=== PATIENT | female | born 1995 | race Caucasian/White ===

== ENCOUNTER 2018-03-17 21:16 | Emergency (ER) | payer OTHER ==
--- NOTE | 2018-03-17 23:12 | EDM.PDOC ---
ED HPI GENERAL MEDICAL PROBLEM - General Chief Complaint: Lower Extremity Injury/Pain Stated Complaint: LEFT FOOT HURTS FROM HEEL TO PINKY TOE Time Seen by Provider: 03/17/18 22:22 Source of Information: Reports: Patient, RN Notes Reviewed History Limitations: Reports: No Limitations - History of Present Illness INITIAL COMMENTS - FREE TEXT/NARRATIVE: The patient reports that she has had an achy sensation to the plantar aspect of her left foot at the MTP joints since 03/15/2017. She denies pain elsewhere on the foot, including the heel. No reported injury, however, the patient states that she works at [employer], and is on her feet all day. No prior similar pain. The patient states that she has not taken any ryoh-xqv-waufoez or other home remedies to treat her symptoms. The patient does not have a PCP. Left Feet Pain Score (Numeric/FACES): 6 - Related Data Allergies Allergy/AdvReac Type Severity Reaction Status Date / Time shellfish derived Allergy Chest Pain Verified 03/17/18 21:35 Home Meds: Home Meds . [No Known Home Meds] 03/17/18 [History] Past Medical History - Past Health History Medical/Surgical History: Denies Medical/Surgical History Social & Family History - Tobacco Use Smoking Status *Q: Never Smoker - Caffeine Use Caffeine Use: Reports: Coffee - Alcohol Use Alcohol Use History: Yes Alcohol Use Frequency: Socially - Recreational Drug Use Recreational Drug Use: No - Living Situation & Occupation Living situation: Reports: Single, with Significant Other (Boyfriend) Occupation: Employed ([employer]) Review of Systems - Review of Systems Review Of Systems: ROS reveals no pertinent complaints other than HPI. ED EXAM, GENERAL - Physical Exam Exam: See Below Exam Limited By: No Limitations General Appearance: Alert, WD/WN, No Apparent Distress Extremities: Other (No visible abnormality to the left foot, when compared to the right, such as swelling, erythema, ecchymosis, abrasion, however, the patient reports tenderness to palpation over the plantar aspect of the MTP joints. No tenderness elsewhere to the foot, including the heel. Neurovascular status of the left lower extremity is intact.) Course - Vital Signs Last Recorded V/S: Last Vital Signs Temp 37.3 C 03/17/18 21:38 Pulse 71 03/17/18 21:38 Resp 20 03/17/18 21:38 BP 115/69 01/04/19 21:38 Pulse Ox 100 03/17/18 21:38 - Orders/Labs/Meds Orders: Active Orders 24 hr Category Date Time Status Foot 2V Lt [CR] Stat Exams 03/17/18 22:24 Taken - Re-Assessments/Exams Free Text/Narrative Re-Assessment/Exam: 03/17/18 23:05 2-view radiographs of the left foot appear to be normal. No fractures or dislocations identified. Formal read per the Radiologist pending. 03/17/18 23:08 X-ray results discussed with the patient. The patient appears to have some musculoskeletal strain of her left foot connective tissue. I'm recommending ice , elevation, rest, and ibuprofen. I will refer her to Dr. Patterson, if her foot is still sore by 03/20/2018. I will write her a note for work for the weekend. Departure - Departure Time of Disposition: 23:09 Disposition: Home, Self-Care 01 Condition: Good Clinical Impression: Left foot pain - Discharge Information *PRESCRIPTION DRUG MONITORING PROGRAM REVIEWED*: Not Applicable *COPY OF PRESCRIPTION DRUG MONITORING REPORT IN PATIENT GIDEON: Not Applicable Instructions: Foot Pain Referrals: PCP,Not In Area [Primary Care Provider] - Vishnu Patterson MD [Physician] - Forms: ED Department Discharge, ED Return to Work/School Form Additional Instructions: You were seen in the emergency room for left foot pain. Workup in the ER included x-rays of your left foot, which were normal. No broken bones or dislocations were seen. Based on your history, physical examination, and x-rays, you have most likely strained the connective tissue in your left foot, likely because of prolonged standing and/or ill-fitting shoes. We recommend that you elevate, ice, and rest your left foot as much as possible over the weekend. Take rfqv-qog-ilpolqi ibuprofen, 2-3 tablets (400-600 mg) every 8 hours, with food, as needed for discomfort. A note for work has been provided for you, to return to work on Tuesday, 2017. If you do not feel that you can return to work by that date, please follow -up with the Orthopedic Surgeon Dr. Vishnu Patterson, for further evaluation. If any other problems, please do not hesitate to return to the ER. - My Orders Last 24 Hours: My Active Orders 03/17/18 22:24 Foot 2V Lt [CR] Stat - Assessment/Plan Last 24 Hours: My Active Orders 03/17/18 22:24 Foot 2V Lt [CR] Stat
--- NOTE | 2018-03-18 14:32 | CR ---
Left foot: Two views of the left foot were obtained. Comparison: No prior foot exam. No fracture or other abnormality is identified. Impression: 1. No abnormality is appreciated on the two-view left foot study. Note: If patient continues to be symptomatic, follow-up study could be considered in 10-14 days. Diagnostic code #1
== END 2018-03-17 23:17 | disposition home or self-care (01) ==
LOC: JD.ED 21:16
DX: M79.672 Pain in left foot (principal); Z91.013 Allergy to seafood
CPT/HCPCS: 73620-26-LT; 73620-LT; 99282; 99283

== ENCOUNTER 2018-04-25 19:44 | Emergency (ER) | payer OTHER ==
[2018-04-25] MEDS ORDERED: Metoclopramide 10 MG/2 ML SDV IVPUSH ONE (20:04)
--- NOTE | 2018-04-25 20:05 | EDM.PDOC ---
ED HPI GENERAL MEDICAL PROBLEM - General Chief Complaint: Gastrointestinal Problem Stated Complaint: VOMITING/FEELS WEAK & LIGHTHEADED Time Seen by Provider: 04/25/18 19:59 Source of Information: Reports: Patient History Limitations: Reports: No Limitations - History of Present Illness INITIAL COMMENTS - FREE TEXT/NARRATIVE: 22-year-old female presents to the ED with recurrent intractable nausea and vomiting of primary bilious material since 11:00 this morning. He states she woke up feeling quite normal. Started to feel nauseated while she was in class at [id number] today about 0900 hrs. Started vomiting about 11:00 and then vomited 3 times in a row. She tried to go to class but vomited once again and then decided to go home. She did have a protein shake for breakfast this morning. Try to nap most of the afternoon but vomited intermittently about every 2-3 hours. Emesis is primarily bilious without blood. Mild upper abdominal pain not radiating anywhere. She does not drink alcohol. Last menstrual period was 10 days ago. Ended last Tuesday. On time and is expected. No previous abdominal surgery. No diarrhea. Feels very weak and lightheaded dizzy. Throat is moderately sore. Onset: Today Onset Date: 04/25/18 Onset Time: 11:00 Duration: Hour(s): Location: Reports: Abdomen (Intractable nausea and vomiting) Quality: Reports: Other (Upper abdominal pressure discomfort in the epigastrium) Severity: Moderate Improves with: Reports: None Worsens with: Reports: Eating (Or taking fluids.) Context: Reports: Other (Spontaneous occurrence of nausea and vomiting this morning). Denies: Activity, Exercise, Lifting, Sick Contact, Trauma Associated Symptoms: Reports: Loss of Appetite, Nausea/Vomiting, Weakness, Other (See history present illness lightheaded dizzy when standing). Denies: Confusion, Chest Pain, Cough, cough w sputum, Diaphoresis, Fever/Chills, Headaches, Malaise, Rash, Seizure, Shortness of Breath Treatments [employer] PH[employer]PERATOR: Reports: Other (see below) (Nothing will stay down) - Related Data Allergies Allergy/AdvReac Type Severity Reaction Status Date / Time shellfish derived Allergy Chest Pain Verified 03/17/18 21:35 Home Meds: Home Meds Ondansetron [Zofran] 4 mg BUCCAL Q6H PRN #6 tab 04/25/18 [Rx] Past Medical History - Past Health History Medical/Surgical History: Denies Medical/Surgical History Social & Family History - Tobacco Use Smoking Status *Q: Never Smoker - Caffeine Use Caffeine Use: Reports: None - Recreational Drug Use Recreational Drug Use: No - Living Situation & Occupation Living situation: Reports: Single, with Significant Other (Boyfriend) Occupation: Employed ([employer]) ED ROS GENERAL - Review of Systems Review Of Systems: See Below Constitutional: Reports: Chills, Malaise, Weakness, Fatigue, Decreased Appetite , Weight Loss HEENT: Reports: Other Respiratory: Reports: No Symptoms (Mildly sore throat) Cardiovascular: Reports: No Symptoms Endocrine: Reports: No Symptoms GI/Abdominal: Reports: Abdominal Pain, Decreased Appetite, Nausea, Vomiting. Denies: Diarrhea (Intractable nausea and vomiting since about 1:00 this morning) : Reports: Other (Urine is dark jeanmarie in color). Denies: Dysuria Musculoskeletal: Reports: Muscle Pain Skin: Reports: No Symptoms (Mild generalized myalgia) Neurological: Reports: Dizziness (When standing) Psychiatric: Reports: No Symptoms Hematologic/Lymphatic: Reports: No Symptoms Immunologic: Reports: No Symptoms ED EXAM, GI/ABD - Physical Exam Exam: See Below Exam Limited By: No Limitations General Appearance: Alert, WD/WN, Mild Distress, Other (Appears mildly pallid.) Eyes: Bilateral: Normal Appearance (No scleral icterus.) Throat/Mouth: Other Head: Atraumatic (Oral pharynx is diffusely erythematous without any exudate.), Normocephalic Neck: Normal Inspection, Supple, Non-Tender, Full Range of Motion. No: Lymphadenopathy (L), Lymphadenopathy (R) Respiratory/Chest: No Respiratory Distress, Lungs Clear, Normal Breath Sounds, No Accessory Muscle Use, Chest Non-Tender Cardiovascular: Normal Peripheral Pulses, No Edema, No Gallop, No JVD, No Murmur (Resting tachycardia at 1 15/m), Tachycardia GI/Abdominal Exam: Normal Bowel Sounds, Soft (Sounds are mildly hyperactive in all 4 quadrants), Non-Tender, No Organomegaly, No Abnormal Bruit, No Mass, Pelvis Stable Back Exam: Normal Inspection, Full Range of Motion. No: CVA Tenderness (L), CVA Tenderness (R) Extremities: Normal Inspection, Normal Range of Motion, Non-Tender, No Pedal Edema Neurological: Alert, Oriented, CN II-XII Intact, Normal Cognition, Normal Gait Psychiatric: Normal Affect, Normal Mood Skin Exam: Warm, Dry, Intact, Normal Color, No Rash Course - Vital Signs Last Recorded V/S: Last Vital Signs Temp 36.6 C 04/25/18 19:51 Pulse 113 H 04/25/18 19:51 Resp 18 04/25/18 19:51 BP 115/77 04/25/18 19:51 Pulse Ox 97 04/25/18 19:51 Orthostatic Blood Pressure [ 101/66 Standing] Orthostatic Blood Pressure [ 112/78 Sitting] Orthostatic Blood Pressure [ 115/72 Supine] - Orders/Labs/Meds Orders: Active Orders 24 hr Category Date Time Status Orthostatic Vital Signs [RC] ASDIRECTED Care 04/25/18 19:59 Active Dextrose 5%-Lactated Ringers 1,000 ml Med 04/25/18 20:15 Active IV ASDIRECTED Ketorolac [Toradol] Med 04/25/18 20:15 Active 30 mg IVPUSH ONETIME Medication Orders Dextrose/Lactated Ringer's (Dextrose 5%-Lactated Ringers) 1,000 mls @ 999 mls/ hr IV ASDIRECTED YAW Last Admin: 04/25/18 20:13 Dose: 999 mls/hr Ketorolac Tromethamine (Toradol) 30 mg IVPUSH ONETIME YAW Last Admin: 04/25/18 20:14 Dose: 30 mg Labs: Laboratory Tests 04/25/18 04/25/18 04/25/18 Range/Units 20:05 20:05 21:05 WBC 10.95 H (3.98-10.04) K/mm3 RBC 4.64 (3.98-5.22) M/mm3 Hgb 14.5 (11.2-15.7) gm/L Hct 42.8 (34.1-44.9) % MCV 92.2 (79.4-94.8) fl MCH 31.3 (25.6-32.2) pg MCHC 33.9 (32.2-35.5) g/dl RDW Std Deviation 39.4 (36.4-46.3) fL Plt Count 228 (182-369) K/mm3 MPV 10.0 (9.4-12.3) fl Neutrophils % (Manual) 85 H (40-60) % Band Neutrophils % 2 (0-10) % Lymphocytes % (Manual) 7 L (20-40) % Atypical Lymphs % 0 % Monocytes % (Manual) 6 (2-10) % Eosinophils % (Manual) 0 L (0.7-5.8) % Basophils % (Manual) 0 L (0.1-1.2) Platelet Estimate Adequate RBC Morph Comment Normal Sodium 138 (136-145) mEq/L Potassium 3.3 L (3.5-5.1) mEq/L Chloride 101 (98-107) mEq/L Carbon Dioxide 24 (21-32) mEq/L Anion Gap 16.3 H (5-15) BUN 20 H (7-18) mg/dL Creatinine 0.8 (0.55-1.02) mg/dL Est Cr Clr Drug Dosing 100.10 mL/min Estimated GFR (MDRD) > 60 (>60) mL/min BUN/Creatinine Ratio 25.0 H (14-18) Glucose 116 H (74-106) mg/dL Calcium 9.3 (8.5-10.1) mg/dL Total Bilirubin 1.0 (0.2-1.0) mg/dL AST 22 (15-37) U/L ALT 25 (14-59) U/L Alkaline Phosphatase 71 (46-116) U/L C-Reactive Protein 2.1 H* (<1.0) mg/dL Total Protein 7.9 (6.4-8.2) g/dl Albumin 4.2 (3.4-5.0) g/dl Globulin 3.7 gm/dL Albumin/Globulin Ratio 1.1 (1-2) Amylase 41 (25-115) U/L Urine Color Yellow (Yellow) Urine Appearance Clear (Clear) Urine pH 5.5 (5.0-8.0) Ur Specific Dilley 1.025 (1.005-1.030) Urine Protein Trace H (Negative) Urine Glucose (UA) 2+ H (Negative) Urine Ketones 1+ H (Negative) Urine Occult Blood Negative (Negative) Urine Nitrite Negative (Negative) Urine Bilirubin Negative (Negative) Urine Urobilinogen 0.2 (0.2-1.0) Ur Leukocyte Esterase Negative (Negative) Urine RBC 0-5 (0-5) /hpf Urine WBC 0-5 (0-5) /hpf Ur Epithelial Cells 5-10 H (0-5) /hpf Urine Bacteria Few (FEW) /hpf Urine Mucus Many H (FEW) /hpf Urine HCG, Qual (NEGATIVE) 04/25/18 Range/Units 21:05 WBC (3.98-10.04) K/mm3 RBC (3.98-5.22) M/mm3 Hgb (11.2-15.7) gm/L Hct (34.1-44.9) % MCV (79.4-94.8) fl MCH (25.6-32.2) pg MCHC (32.2-35.5) g/dl RDW Std Deviation (36.4-46.3) fL Plt Count (182-369) K/mm3 MPV (9.4-12.3) fl Neutrophils % (Manual) (40-60) % Band Neutrophils % (0-10) % Lymphocytes % (Manual) (20-40) % Atypical Lymphs % % Monocytes % (Manual) (2-10) % Eosinophils % (Manual) (0.7-5.8) % Basophils % (Manual) (0.1-1.2) Platelet Estimate RBC Morph Comment Sodium (136-145) mEq/L Potassium (3.5-5.1) mEq/L Chloride (98-107) mEq/L Carbon Dioxide (21-32) mEq/L Anion Gap (5-15) BUN (7-18) mg/dL Creatinine (0.55-1.02) mg/dL Est Cr Clr Drug Dosing mL/min Estimated GFR (MDRD) (>60) mL/min BUN/Creatinine Ratio (14-18) Glucose (74-106) mg/dL Calcium (8.5-10.1) mg/dL Total Bilirubin (0.2-1.0) mg/dL AST (15-37) U/L ALT (14-59) U/L Alkaline Phosphatase (46-116) U/L C-Reactive Protein (<1.0) mg/dL Total Protein (6.4-8.2) g/dl Albumin (3.4-5.0) g/dl Globulin gm/dL Albumin/Globulin Ratio (1-2) Amylase (25-115) U/L Urine Color (Yellow) Urine Appearance (Clear) Urine pH (5.0-8.0) Ur Specific Dilley (1.005-1.030) Urine Protein (Negative) Urine Glucose (UA) (Negative) Urine Ketones (Negative) Urine Occult Blood (Negative) Urine Nitrite (Negative) Urine Bilirubin (Negative) Urine Urobilinogen (0.2-1.0) Ur Leukocyte Esterase (Negative) Urine RBC (0-5) /hpf Urine WBC (0-5) /hpf Ur Epithelial Cells (0-5) /hpf Urine Bacteria (FEW) /hpf Urine Mucus (FEW) /hpf Urine HCG, Qual Negative (NEGATIVE) Meds: Medications Generic Name Dose Route Start Last Admin Trade Name Freq PRN Reason Stop Dose Admin Dextrose/Lactated Ringer's 1,000 mls @ 999 mls/hr 04/25/18 20:15 04/25/18 20: 13 Dextrose 5%-Lactated Ringers IV 999 mls/hr ASDIRECTED YAW Administration Ketorolac Tromethamine 30 mg 04/25/18 20:15 04/25/18 20:14 Toradol IVPUSH 30 mg ONETIME YAW Administration Discontinued Medications Generic Name Dose Route Start Last Admin Trade Name Freq PRN Reason Stop Dose Admin Metoclopramide HCl 7.5 mg 04/25/18 20:04 04/25/18 20:13 Reglan IVPUSH 04/25/18 20:05 7.5 mg ONETIME ONE Administration - Radiology Interpretation Free Text/Narrative:: 22-year-old female presents to the ED with intractable nausea and vomiting since 11:00 this morning. Emesis is primarily bilious and initially did contain some food product consumed earlier this morning. No hematemesis. Has diffuse upper abdominal discomfort. No cramps or diarrhea occurred. Chilled at times. Afebrile at this time. Resting tachycardia of 115/min. plan orthostatic BP. IV will be D5 Ringer's lactate at open. Given Reglan 7.5 mg IV and Toradol 30 mg IV for nausea and pain relief. Routine labs and urinalysis will be collected. - Re-Assessments/Exams Free Text/Narrative Re-Assessment/Exam: 04/25/18 20:22 orthostatic vital signs are positive. 04/25/18 21:38 Labs reveal a slightly elevated white count at 10.95 with 85% neutrophils and 2% band cells reported. Hemoglobin is 14.5 with hematocrit of 42.8. Platelet count is 10 28,000. Sodium 138 with potassium of 3.3. Troponin 1 with a bicarbonate 24. And a gap is mildly elevated at 16.3. B1 is 20 with a creatinine of 0.8. GFR remains greater than 60. Glucose is 116. Calcium 9.3. Liver function is normal. C-reactive protein is mildly elevated at 2.1. Amylase is normal at 41. Urinalysis shows 2+ glucosuria 1+ ketonuria and 5-10 epithelials but no RBCs or WBCs.. Urine [id number] test was negative. Departure - Departure Time of Disposition: 21:40 Disposition: Home, Self-Care 01 Condition: Fair Clinical Impression: Viral gastritis, Nausea and vomiting in adult patient - Discharge Information *PRESCRIPTION DRUG MONITORING PROGRAM REVIEWED*: Not Applicable *COPY OF PRESCRIPTION DRUG MONITORING REPORT IN PATIENT GIDEON: Not Applicable Prescriptions: Ondansetron [Zofran] 4 mg BUCCAL Q6H PRN #6 tab PRN Reason: nausea or vomiting Instructions: Gastritis, Adult, [id number], Nausea and Vomiting, Adult, Easy- to-Read Referrals: PCP,None [Primary Care Provider] - Forms: ED Department Discharge Additional Instructions: Evaluation the emergency room today in regards to development of acute onset of nausea vomiting which persisted throughout the day. Associated diarrhea has occurred. Labs reveal evidence of viral gastritis. You were treated in the ER with 800 mils of Ringer's lactate to provide rehydration. Treatment at home is to be Zofran 4 mg of the tongue every 4 hours as needed for relief of nausea vomiting. Suggest taking one at 11:00 tonight. Diet is to be clear fluids might mainly Gatorade or Powerade 4-5 ounces sipped per hour. When hungry try soda crackers first if tolerated may advance to Jell-O at any time. Then may try bread with some gym are not or toast. If this is tolerated may advance to soup or chicken rice/turkey noodle. Just home from school tomorrow. - My Orders Last 24 Hours: My Active Orders 04/25/18 19:59 Orthostatic Vital Signs [RC] ASDIRECTED 04/25/18 20:15 Dextrose 5%-Lactated Ringers 1,000 ml IV ASDIRECTED Ketorolac [Toradol] 30 mg IVPUSH ONETIME - Assessment/Plan Last 24 Hours: My Active Orders 04/25/18 19:59 Orthostatic Vital Signs [RC] ASDIRECTED 04/25/18 20:15 Dextrose 5%-Lactated Ringers 1,000 ml IV ASDIRECTED Ketorolac [Toradol] 30 mg IVPUSH ONETIME
[2018-04-25] MEDS ORDERED: Dextrose 5%-Lactated Ringers 1,000 ML IV SCH (20:15)
[2018-04-25] MEDS ORDERED: Ketorolac 30 MG/ML SDV IVPUSH SCH (20:15)
== END 2018-04-25 21:49 | disposition home or self-care (01) ==
LOC: JD.ED 19:44
DX: A08.4 Viral intestinal infection, unspecified (principal); Z91.013 Allergy to seafood
CPT/HCPCS: 36415; 80053; 81001; 81025; 82150; 85007; 85027; 86140; 96361; 96374; 96375; 99284; J1885; J2765; J7042